=== PATIENT | female | born 1940 | race Caucasian/White ===

== ENCOUNTER 2017-02-09 15:18 | Emergency (ER) | payer MEDICARE, MEDICAID ==
[~2017-02-09] VITALS: Ht 154.9 cm; Wt 78.0 kg
[2017-02-09 15:18] VITALS: BP 131/68
--- NOTE | 2017-02-09 15:49 | NUR ---
RADIOLOGY AT BEDSIDE FOR R KNEE XRAY.
== END 2017-02-09 15:47 | disposition home or self-care (01) ==
LOC: ER 15:20
DX: M25.561 Pain in right knee (principal); E78.5 Hyperlipidemia, unspecified; E11.9 Type 2 diabetes mellitus without complications; I10 Essential (primary) hypertension
CPT/HCPCS: 73564; 99284; A4606; Z7610